=== PATIENT | male | born 1975 | race Hispanic/Latino ===

== ENCOUNTER 2017-02-10 11:01 | Emergency (ER) | payer SELFPAY ==
[2017-02-10] MEDS ORDERED: ceFAZolin Sodium 1 GM VIAL ONE (11:56)
[2017-02-10] MEDS ORDERED: Ondansetron ODT 8 MG TAB ONE (11:56)
[2017-02-10] MEDS ORDERED: Adacel (T-DAP) 0.5 ML VIAL ONE (11:56)
[2017-02-10] MEDS ORDERED: Sterile Water 10 ML ONE (11:59)
--- NOTE | 2017-02-10 12:09 | CT ---
CT HEAD NONCONTRAST: History: Headache. Comparison: 05-30-14 FINDINGS: There is no evidence of acute intracranial hemorrhage or infarct. Capum septum pellucidum is similar in appearance to the prior study. There is no mass effect or shift of midline structures. Visualize d paranasal sinuses are now well aerated. IMPRESSION: No acute intracranial abnormalities are demonstrated on noncontrast CT head. POS: [facility]
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
[2017-02-10] MEDS ORDERED: Bacitracin Zinc 1 Packet ONE (12:51)
== END 2017-02-10 13:12 | disposition home or self-care (01) ==
LOC: ERS 11:01
DX: S01.511A Laceration without foreign body of lip, initial encounter (principal); S90.31XA Contusion of right foot, initial encounter; I48.91 Unspecified atrial fibrillation; F41.9 Anxiety disorder, unspecified; F32.9 Major depressive disorder, single episode, unspecified; Z87.891 Personal history of nicotine dependence; Z23 Encounter for immunization; Y04.0XXA Assault by unarmed brawl or fight, initial encounter
CPT/HCPCS: 70450; 70486; 72125; 90471; 90715; 96372; A4216; J0690; J1170

== ENCOUNTER 2019-06-02 10:41 | Emergency (ER) | payer SELFPAY ==
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
== END 2019-06-02 12:58 | disposition home or self-care (01) ==
LOC: ERS 10:41
DX: S06.0X9A Concussion with loss of consciousness of unspecified duration, initial encounter (principal); S00.83XA Contusion of other part of head, initial encounter; F41.9 Anxiety disorder, unspecified; I48.91 Unspecified atrial fibrillation; F32.9 Major depressive disorder, single episode, unspecified; Z87.891 Personal history of nicotine dependence; Y04.0XXA Assault by unarmed brawl or fight, initial encounter
CPT/HCPCS: 70450; 70486; 93005

== ENCOUNTER 2019-08-01 12:57 | Emergency (ER) | payer SELFPAY | END 2019-08-01 13:20 | disposition home or self-care (01) | LOC: ERS 12:57 | DX: K04.7 Periapical abscess without sinus (principal); K02.9 Dental caries, unspecified; I48.91 Unspecified atrial fibrillation; F41.9 Anxiety disorder, unspecified; F32.9 Major depressive disorder, single episode, unspecified; Z87.891 Personal history of nicotine dependence | CPT/HCPCS: 99282 ==

== ENCOUNTER 2021-04-09 07:19 | Emergency (ER) | payer SELFPAY ==
[2021-04-09] MEDS ORDERED: Dexamethasone 10 MG/ML VIAL ONE (07:54)
[2021-04-09] MEDS ORDERED: Ketorolac Tromethamine 30 MG/ML VIAL ONE (07:54)
[2021-04-09] MEDS ORDERED: Ondansetron PF 4 MG/2 ML Vial ONE (07:54)
[2021-04-09] MEDS ORDERED: Diazepam 10 MG/2 ML SYRINGE ONE (07:54)
[2021-04-09 08:20] LABS: #Eosinphils 0.1 thou/uL (0.0-0.7); #Lymphocytes 1.9 thou/uL (1.20-3.40); #Monocytes 0.7 thou/uL (0.11-0.59); #Neutrophils 6.4 thou/uL (1.40-6.50); %Basophils 0.4 % (0.0-1.0); %Eosinophils 0.7 % (0.0-10.0); %Lymphocytes 20.9 % (21.0-51.0); %Monocytes 7.9 % (0.0-10.0); %Neutrophils 70.1 % (42.0-75.0); Hemoglobin 16.2 g/dL (14.0-18.0); Mean Corpuscular HGB CONC 33.6 g/dL (32.0-36.0); Mean Corpuscular Volume 92.1 fL (78.0-98.0); Mean Platelet Volume 7.5 fL (7.4-10.4); Platelet Count 215 thou/uL (130-400); RBC Distribution Width 13.9 % (11.5-14.5); Red Blood Cell (RBC) Count 5.25 mill/uL (4.70-6.10); White Blood Cell (WBC) Count 9.2 thou/uL (4.8-10.8)
[2021-04-09] MEDS ORDERED: Diazepam 5 MG TAB ONE ×2 (08:23→08:28)
[2021-04-09 08:43] LABS: ALT (SGPT) 110 U/L (8-55); AST (SGOT) 81 U/L (5-34); Albumin 4.3 g/dL (3.5-5.0); Alkaline Phosphatase 90 U/L (40-110); Anion Gap 16 mmol/L (10-20); BUN (Urea Nitrogen) 15 mg/dL (8.9-20.6); Bilirubin, Total 0.7 mg/dL (0.2-1.2); Calc. Creatinine Clearance 0 mL/min (70-130); Calcium 9.7 mg/dL (7.8-10.44); Carbon Dioxide 21 mmol/L (22-29); Chloride 104 mmol/L (98-107); Globulin 4.1 g/dL (2.4-3.5); Glucose 119 mg/dL (70-105); Lipase 33 U/L (8-78); Potassium 4.7 mmol/L (3.5-5.1); Protein, Total 8.4 g/dL (6.0-8.3); Sodium 136 mmol/L (136-145)
== END 2021-04-09 09:23 | disposition home or self-care (01) ==
LOC: ERS 07:19
DX: M54.50 Low back pain, unspecified (principal); R11.2 Nausea with vomiting, unspecified; R74.8 Abnormal levels of other serum enzymes; I10 Essential (primary) hypertension; I48.91 Unspecified atrial fibrillation
CPT/HCPCS: 72131; 72192; 80053; 83690; 85025; 96374; 96375; J1100; J1885; J2405; J3360

== ENCOUNTER 2021-05-08 15:35 | Emergency (ER) | payer SELFPAY | END 2021-05-08 16:55 | disposition left against medical advice (07) | LOC: ERS 15:35 | DX: Z53.21 Procedure and treatment not carried out due to patient leaving prior to being seen by health care provider (principal) ==

== ENCOUNTER 2021-05-14 08:08 | Emergency (ER) | payer SELFPAY ==
[2021-05-14 15:48] LABS: SARS-CoV-2 PCR by NAA DETECTED (NotDetected)
== END 2021-05-14 09:42 | disposition home or self-care (01) ==
LOC: ERS 08:08
DX: U07.1 COVID-19 (principal); I10 Essential (primary) hypertension
CPT/HCPCS: 87804; 99283; U0003; U0005